=== PATIENT | male | born 1995 | race Hispanic/Latino ===

== ENCOUNTER 2017-07-20 22:44 | Emergency (ER) | payer OTHER ==
[~2017-07-20] VITALS: Ht 170.2 cm; Wt 90.7 kg
[2017-07-21 00:12] VITALS: BP 159/102
--- NOTE | 2017-07-21 00:51 | RADIOLOGY REPORT ---
EXAMINATION: LEFT KNEE 3 VIEWS CLINICAL INFORMATION: Left knee pain following injury. COMPARISON: None. TECHNIQUE: AP, lateral, oblique views of the left knee were obtained. FINDINGS: There are no fractures or dislocations. There is no knee joint effusion. There is no significant soft tissue swelling. IMPRESSION: Unremarkable left knee radiographs.
--- NOTE | 2017-07-21 01:13 | ED UPPER/LOWER EXTREMITY COMPL ---
History of Present Illness General Chief Complaint: Lower Extremity Injury Stated Complaint: LEFT KNEE PAIN S/P PLAYING BASKET BALL Source: patient Exam Limitations: no limitations Vital Signs & Intake/Output Vital Signs & Intake/Output Vital Signs Date Time Temp Pulse Resp B/P B/P Pulse O2 O2 Flow FiO2 Mean Ox Delivery Rate 07/21 001 98.2 76 16 159/102 Allergies Coded Allergies: NO KNOWN ALLERGIES (07/21/17) Reconcile Medications Naproxen (Naprosyn) 500 MG TABLET 1 TAB PO BID PAIN Triage Note: 22YOMALE TO TRIAGE W/CO L KNEE PAIN SP "LANDING WRONG WHILE PLAYING BASKETBALL TONITE" Triage Nurses Notes Reviewed? yes HPI: Patient presents for evaluation of a knee injury that occurred earlier this evening as a result of basketball. Patient states he twisted the knee with a resulting bilateral knee pain but no apparent swelling ecchymoses or erythema. The pain began abruptly and is described as mild and worse with attempts to ambulate. It is an aching and sharp pain. Past History Travel History Traveled to [place] past 21 day No Medical History Any Pertinent Medical History? 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 No Review of Systems Review of Systems Constitutional: Reports: no symptoms. EENTM: Reports: no symptoms. Respiratory: Reports: no symptoms. Cardiovascular: Reports: no symptoms. Gastrointestinal/Abdominal: Reports: no symptoms. Genitourinary: Reports: no symptoms. Musculoskeletal: Reports: see HPI. Skin: Reports: no symptoms. Neurological/Psychological: Reports: no symptoms. Hematologic/Endocrine: Reports: no symptoms. Immunological: Reports: no symptoms. All Other Systems: Reviewed and Negative Physical Exam Physical Exam General Appearance: SEE BELOW Comments: Gen.: Well-nourished, well-developed, no acute respiratory distress. Head: Normocephalic, atraumatic. Eyes: Normal inspection bilaterally Ears: Normal inspection bilaterally Nose: Normal inspection Throat/mouth : Moist mucosa Neck: Supple, full range of motion, no goiter Heart: Regular rate and rhythm Lungs: Quiet respirations Back: Normal range of motion Extremities: Left knee: Mild effusion without ecchymoses or erythema or warmth. Decreased range of motion secondary to pain. Nontender over the collateral ligaments. No drawer sign. The left lower cavity is neurovascular intact distally. Neurologic: Cranial nerves grossly intact, speech is clear Skin: warm and dry Psychiatric: Calm, cooperative, no apparent delusions or hallucinations Progress Differential Diagnosis: contusion, dislocation, fracture, sprain, tendon injury Plan of Care: Orders Procedure Date/time Status Durable Medical Equipment 07/22 131 Active Radiology Impression: PATIENT: EDGAR MCCARTY PRESENT AGE: 22 PATIENT ACCOUNT NO: [id number] : 93 LOCATION: [facility] ORDERING PHYSICIAN: Krzysztof Reis MD SERVICE DATE: 07/21/17 EXAM TYPE : RAD - XRY-KNEE COMPLETE LEFT EXAMINATION: LEFT KNEE 3 VIEWS CLINICAL INFORMATION: Left knee pain following injury. COMPARISON: None. TECHNIQUE: AP, lateral, oblique views of the left knee were obtained. FINDINGS: There are no fractures or dislocations. There is no knee joint effusion. There is no significant soft tissue swelling. IMPRESSION: Unremarkable left knee radiographs. DICTATED BY: Florian Crowley MD DATE/TIME DICTATED:07/21/1743 VAT TENDER:ZULEYMA DATE/TIME TRANSCRIBED:07/21/1743 CONFIDENTIAL, DO NOT COPY WITHOUT APPROPRIATE AUTHORIZATION. <Electronically signed in Other Vendor System> SIGNED BY: Florian Crowley MD 07/21/1750 Departure Departure Disposition: HOME OR SELF CARE Condition: Stable Clinical Impression Primary Impression: Left knee sprain Referrals: Micehlle ALLEN,Vinod Anaya (PCP/Family) Additional Instructions: Knee immobilizer when active. Ice and elevation over the next 48 hours. Naprosyn as prescribed. Activity as tolerated but in regards to your job, do not work over the next 72 hours and then a restricted duty after that. If your knee pain does not begin to resolve at that point you will require reevaluation by either your primary care physician for additional testing or an patient care specialist such as Dr. Tyler listed below. Otherwise return if any concerns or sudden worsening. Please note that there might be incidental findings in your evaluation that are unrelated to the current emergency department visit. Please notify your primary care doctor about this emergency department visit in order to obtain and review all of the testing performed so that these incidental findings can be monitored as needed. If you had an x-ray performed, please understand that some fractures may not be seen on the initial set of x-rays. If your symptoms persist you might need a repeat set of x-rays to check for such a fracture. If you had a laceration evaluated, please understand that foreign bodies such as glass or wood may not be visible to the naked eye or on plain x-rays. If the wound becomes red, swollen, increasingly more painful or if there is any drainage from the wound, please have it reevaluated by a physician for the possibility of a retained foreign body. If you're unable to follow up as outlined in the discharge instructions please return to the emergency department. Thank you for choosing the [facility] Emergency [facility] for your care. It was a pleasure to serve you today. Krzysztof Reis M.D. [facility] Departure Forms: Customer Survey General Discharge Information Prescriptions: Current Visit Scripts Naproxen (Naprosyn) 1 TAB PO BID #20 TAB
[2017-07-21] MEDS ORDERED: NAPROSYN500 M1 PO (01:30)
== END 2017-07-21 01:40 ==
LOC: ERH 22:44
DX: S83.92XA Sprain of unspecified site of left knee, initial encounter (principal); X58.XXXA Exposure to other specified factors, initial encounter; Y93.67 Activity, basketball; Y92.9 Unspecified place or not applicable
CPT/HCPCS: 73562-LT